=== PATIENT | female | born 1970 | race Two or more races ===

== ENCOUNTER 2018-04-28 03:27 | Emergency (ER) | payer SELFPAY ==
[2018-04-28 03:27] VITALS: BMI 36.3
[2018-04-28 03:43] VITALS: BP 99/66; PULSE 88; RESP 20; TEMP 98.4; O2SAT 100
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
--- NOTE | 2018-04-28 10:22 | CT ---
Date of service: 04/28/2018 PROCEDURE: CT HEAD WITHOUT CONTRAST. HISTORY: Occipital contusion/hematoma COMPARISON: None available. TECHNIQUE: Axial computed tomography images were obtained through the head/brain without intravenous contrast. Radiation dose: Total exam DLP = 1058.85 mGy-cm. This CT exam was performed using one or more of the following dose reduction techniques: Automated exposure control, adjustment of the mA and/or kV according to patient size, and/or use of iterative reconstruction technique.. FINDINGS: HEMORRHAGE: No acute parenchymal, subarachnoid or extra-axial hemorrhage. BRAIN: No mass effect or edema. No atrophy or chronic microvascular ischemic changes. VENTRICLES: No obstructive hydrocephalus. CALVARIUM: No acute calvarial fractures.. Small left posterior superior parietal scalp contusion near the vertex. PARANASAL SINUSES: On mild to moderate mucosal thickening within the ethmoid air complex extending superiorly into the frontal sinus. MASTOID AIR CELLS: Unremarkable as visualized. No inflammatory changes. OTHER FINDINGS: None. IMPRESSION: No evidence of acute intracranial hemorrhage.. Mild left posterior superior parietal scalp contusion.
== END 2018-04-28 04:52 | disposition home or self-care (01) ==
LOC: C.ER 03:27
DX: S00.03XA Contusion of scalp, initial encounter (principal); Y08.89XA Assault by other specified means, initial encounter; Y92.9 Unspecified place or not applicable; F10.10 Alcohol abuse, uncomplicated